=== PATIENT | female | born 1985 | race Caucasian/White ===

== ENCOUNTER → 2016-12-04 | Outpatient (CLI) | payer OTHER ==
--- NOTE | 2016-12-04 16:05 | US ---
EXAMINATION TYPE: US transvaginal DATE OF EXAM: 12/04/2016 COMPARISON: Previous study dated 05/27/2016. CLINICAL HISTORY: Brca 1 positive Z15.01. gerard mastectomy 2016, left breast cancer TECHNIQUE: Transvaginal (TV) Date of LMP: 11/21/2016 EXAM MEASUREMENTS: Uterus: 9.4 x 4.1 x 5.3 cm Endometrial Stripe: 0.5 cm Right Ovary: 2.2 x 1.1 x 1.7 cm Left Ovary: 1.7 x 1.3 x 1.7 cm 1. Uterus: Anteverted small nabothian cyst 0.3 cm 2. Endometrium: wnl 3. Right Ovary: small ov cysts 0.5 x 0.4 x 0.4, 0.7 x 0.5 x0.5, 0.6 x0.9 x 0.5 4. Left Ovary: echogenicity more echogenic than rt side no mass seen 5. Bilateral Adnexa: wnl 6. Posterior cul-de-sac: small amt fluid 1.2 cm IMPRESSION: 1. SMALL NABOTHIAN CYSTS IN THE POSTERIOR LIP OF THE CERVIX. 2. FOLLICULAR CHANGE WITHIN THE RIGHT OVARY.
== END | disposition home or self-care (01) ==
LOC: RADUSWWP 15:33
PROVIDERS: ATTEND Obstetrics & Gynecology
DX: N88.8 Other specified noninflammatory disorders of cervix uteri (principal); Z15.01 Genetic susceptibility to malignant neoplasm of breast
CPT/HCPCS: 76830

== ENCOUNTER → 2017-06-11 | Outpatient (CLI) | payer OTHER ==
--- NOTE | 2017-06-11 09:23 | US ---
EXAMINATION TYPE: US transvaginal DATE OF EXAM: 06/11/2017 COMPARISON: Ultrasound 12/04/2016 CLINICAL HISTORY: Z15.01 BRCA Positive. testing every 6 months due to +BRCA 1, bilateral mastectomy TECHNIQUE: TV Date of LMP: Late April EXAM MEASUREMENTS: Uterus: 9.7 x 5.4 x 5.3 cm Endometrial Stripe: 1.3 cm Right Ovary: 3.7 x 3.2 x 2.7 cm Left Ovary: 2.6 x 2.1 x 2.0 cm 1. Uterus: Anteverted wnl 2. Endometrium: wnl 3. Right Ovary: 2.0cm complex cyst with irregular kennedy and internal solid components, this warrants follow-up. 4. Left Ovary: multiple follicles seen at 1cm or under. Previous left ovarian hypoechoic appearance has resolved. 5. Bilateral Adnexa: wnl 6. Posterior cul-de-sac: wnl IMPRESSION: 1. Complex cyst right ovary. Recommend follow-up exam following the next normal menstrual period or 6 weeks from current exam.
== END | disposition home or self-care (01) ==
LOC: RADUSWWP 07:42
PROVIDERS: ATTEND Obstetrics & Gynecology
DX: N83.201 Unspecified ovarian cyst, right side (principal); Z15.01 Genetic susceptibility to malignant neoplasm of breast
CPT/HCPCS: 76830; 86304

== ENCOUNTER → 2017-07-21 | Outpatient (CLI) | payer OTHER ==
--- NOTE | 2017-07-21 08:27 | US ---
EXAMINATION TYPE: US pelvic complete DATE OF EXAM: 07/21/2017 COMPARISON: US CLINICAL HISTORY: N83.20 PREV OVARIAN CYST; HX of Breast CA, BRCA 1; ; followup right ovarian cys t TECHNIQUE: Transvaginal (TV) Date of LMP: 07/15/2017 EXAM MEASUREMENTS: Uterus: 9.0 x 5.3 x 3.6 cm Endometrial Stripe: 2.9mm upper right and 2.5mm upper left endometrium Right Ovary: 3.9 x 1.8 x 2.8 cm Left Ovary: 2.6 x 2.1 x 2.2 cm 1. Uterus: Anteverted; small Nabothian cysts in Cervix with largest = 0.3 x 0.3 x 0.2cm 2. Endometrium: thickness is wnl for Day 7LMP with bicornuate appearance to upper endometrium 3. Right Ovary: multifollicular with largest = 1.2 x 1.3 x 0.8cm 4. Left Ovary: multiple small follicles Spectral, color and waveform doppler imaging shows good arterial and venous flow within the ovaries ; there is no evidence for ovarian torsion. 5. Bilateral Adnexa: wnl 6. Posterior cul-de-sac: wnl IMPRESSION: 1. Bicornuate uterus. 2. Multiple follicles as noted
== END | disposition home or self-care (01) ==
LOC: RADUSWWP 07:36
PROVIDERS: ATTEND Obstetrics & Gynecology
DX: Q51.3 Bicornate uterus (principal)
CPT/HCPCS: 76830

== ENCOUNTER → 2017-12-18 | Outpatient (CLI) | payer OTHER ==
--- NOTE | 2017-12-18 08:06 | US ---
EXAMINATION TYPE: US transvaginal DATE OF EXAM: 12/18/2017 COMPARISON: Prior ultrasound 12/18/2017 CLINICAL HISTORY: Z15.01 BRCA I POSITIVE. 6 month follow up, no new compliants TECHNIQUE: Transvaginal (TV). Transvaginal sonographic images of the pelvis were acquired. Date of LMP: 2 wks ago EXAM MEASUREMENTS: Uterus: 8.1 x 4.3 x 5.3 cm Endometrial Stripe: 1.0 cm Right Ovary: 3.6 x 2.2 x 3.2 cm Left Ovary: 3.7 x 2.7 x 3.0 cm 1. Uterus: Anteverted heterogeneous around the cervical aspect 2. Endometrium: wnl 3. Right Ovary: wnl, multiple follicles are present 4. Left Ovary: seen with a thick walled cyst measuring 2.2cm, multiple follicles 5. Bilateral Adnexa: wnl 6. Posterior cul-de-sac: no free fluid seen IMPRESSION: At the level of the cervix there are multiple cystic spaces present which is an interval change in appearance compared to prior exam, findings felt most likely to represent nabothian cysts.
== END | disposition home or self-care (01) ==
LOC: RADUSWWP 07:31
PROVIDERS: ATTEND Obstetrics & Gynecology
DX: N88.8 Other specified noninflammatory disorders of cervix uteri (principal); Z15.01 Genetic susceptibility to malignant neoplasm of breast
CPT/HCPCS: 76830

== ENCOUNTER → 2018-06-25 | Outpatient (CLI) | payer OTHER ==
--- NOTE | 2018-06-25 08:22 | US ---
EXAMINATION TYPE: US transvaginal DATE OF EXAM: 06/25/2018 COMPARISON: US 12/18/2017 CLINICAL HISTORY: Z15.01 BRCA-positive. TECHNIQUE: . Transvaginal sonographic images of the pelvis were acquired. Transvaginal sonographic images were medically necessary to better assess the following anatomy: Ovaries Date of LMP: 06/03/2018 EXAM MEASUREMENTS: Uterus: 9.2 x 4.9 x 5.4 cm Endometrial Stripe: 0.9 cm Right Ovary: 3.8 x 2.4 x 1.8 cm Left Ovary: 2.9 x 2.6 x 2.6 cm 1. Uterus: Anteverted tiny nabothian cysts appear smaller than on the prior. 2. Endometrium: wnl 3. Right Ovary: Multiple follicles visualized 4. Left Ovary: Dominant follicle visualized measuring 2.2 x 1.8 x 2.0 cm 5. Bilateral Adnexa: wnl 6. Posterior cul-de-sac: wnl IMPRESSION: Nabothian cyst seen on the prior exam appears smaller. Stable dominant left ovarian folli rodolfo in comparison to the exam of 12/18/2017.
== END ==
LOC: RADUSWWP 07:34
PROVIDERS: ATTEND Obstetrics & Gynecology
DX: Z09 Encounter for follow-up examination after completed treatment for conditions other than malignant neoplasm (principal); N88.8 Other specified noninflammatory disorders of cervix uteri; Z15.01 Genetic susceptibility to malignant neoplasm of breast
CPT/HCPCS: 36415; 76830; 86304

== ENCOUNTER → 2018-09-09 | Outpatient (CLI) | payer OTHER ==
[2018-09-09 16:08] LABS: HCT 36.4 % (34.0-46.0); HGB 12.2 gm/dL (11.4-16.0); MCH 28.3 pg (25.0-35.0); MCHC 33.4 g/dL (31.0-37.0); MCV 84.7 fL (80.0-100.0); Mean Platelet Volume 6.4; Platelet Count 259 k/uL (150-450); RBC 4.29 m/uL (3.80-5.40); RDW 13.5 % (11.5-15.5); WBC 8.8 k/uL (3.8-10.6)
== END ==
LOC: LABWHC1 15:44
PROVIDERS: ATTEND Obstetrics & Gynecology
DX: Z34.81 Encounter for supervision of other normal pregnancy, first trimester (principal); Z3A.00 Weeks of gestation of pregnancy not specified
CPT/HCPCS: 36415; 82565; 82947; 85027; 86762; 86780; 86850; 86900; 86901; 87340

== ENCOUNTER → 2018-09-24 | Outpatient (CLI) | payer OTHER | LOC: LABWHC1 09:24 | PROVIDERS: ATTEND Obstetrics & Gynecology | DX: Z53.9 Procedure and treatment not carried out, unspecified reason (principal) ==

== ENCOUNTER → 2018-11-01 | Outpatient (CLI) | payer OTHER ==
[2018-11-02 10:40] LABS: Alpha Fetoprotein (M.O.M) 0.98; B-HCG (M.O.M.) 2.98; Gestational Age (days) 6; Inhibin A (M.O.M.) 1.24; Maternal Age at EDD (Yrs) 35; Smoker No; Unconjugated Estriol (M.O.M.) 1.63
== END | disposition home or self-care (01) ==
LOC: LABWHC1 08:27
PROVIDERS: ATTEND Obstetrics & Gynecology
DX: Z34.82 Encounter for supervision of other normal pregnancy, second trimester (principal)
CPT/HCPCS: 36415; 82105; 82677; 84702; 86336

== ENCOUNTER → 2018-12-21 | Outpatient (CLI) | payer OTHER ==
[2018-12-21 09:15] LABS: HCT 33.1 % (34.0-46.0); HGB 11.1 gm/dL (11.4-16.0); MCH 30.3 pg (25.0-35.0); MCHC 33.7 g/dL (31.0-37.0); MCV 90.1 fL (80.0-100.0); Mean Platelet Volume 7.4; Platelet Count 218 k/uL (150-450); RBC 3.67 m/uL (3.80-5.40); RDW 15.6 % (11.5-15.5); WBC 9.7 k/uL (3.8-10.6)
== END | disposition home or self-care (01) ==
LOC: LABWHC1 07:38
PROVIDERS: ATTEND Obstetrics & Gynecology
DX: Z34.82 Encounter for supervision of other normal pregnancy, second trimester (principal); Z3A.00 Weeks of gestation of pregnancy not specified
CPT/HCPCS: 36415; 82950; 85027

== ENCOUNTER 2019-03-29 05:50 | Inpatient (IN) | payer OTHER ==
[2019-03-29] MEDS ORDERED: METHYLERGONOVINE 0.2 MG/ML 1 ML AMP IM PRN (06:03)
[2019-03-29] MEDS ORDERED: LIDOCAINE 0.5% (PF) 5 MG/ML (50 ML SDV) SQ PRN (06:03)
[2019-03-29] MEDS ORDERED: OXYTOCIN 30 UNITS/500 ML NS 30 UNIT in SALINE 1 500ML.BAG IV SCH (06:03)
[2019-03-29] MEDS ORDERED: CARBOPROST TROMETHAMINE 250 MCG/ML 1 ML AMP IM PRN (06:03)
[2019-03-29] MEDS ORDERED: OXYTOCIN 10 UNIT/ML 1 ML VIAL IM PRN (06:03)
[2019-03-29] MEDS ORDERED: TERBUTALINE 1 MG/ML VIAL SQ PRN (06:03)
[2019-03-29] MEDS: LACTATED RINGERS 1,000 ML IV SCH ×5 (06:10→20:00)
--- NOTE | 2019-03-29 06:12 | P.HPOB ---
History of Present Illness H&P Date: 03/29/19 Chief Complaint: Requested induction of labor This patient is a pleasant 33-year-old 3 para 2 female estimated date of confinement 04/05/2019 estimated gestational age 39 weeks who presents to labor and delivery for requested induction of labor. Patient's care is complicated by advanced for maternal age. She declined referral to maternal- medicine but she did get genetic testing done with Materni T21 which was normal (46XX). She has had normal growth ultrasounds and anatomy ultrasounds and normal testing. Patient is now requesting delivery due to maternal discomfort. Patient does have a history of large for gestational age infants without delivery implications. Estimated weight at this time is 8 and half to 9 pounds. Patient's past medical history is significant for a previous diagnosis of breast cancer and she status post bilateral mastectomy and she is a carrier of BRCA1 gene. Review of Systems Genitourinary: Reports Menstruation: Reports amenorrhea Past Medical History Past Medical History: Cancer Additional Past Medical History / Comment(s): Breast cancer status post gerard ateral mastectomy. BRCA1 gene carrier History of Any Multi-Drug Resistant Organisms: None Reported Past Surgical History: Appendectomy, Breast Surgery Additional Past Surgical History / Comment(s): Bilateral mastectomy with bilateral reconstructive surgery Past Anesthesia/Blood Transfusion Reactions: No Reported Reaction Past Psychological History: No Psychological Hx Reported Smoking Status: Never smoker Past Alcohol Use History: None Reported Past Drug Use History: None Reported Medications and Allergies Home Medications Medication Instructions Recorded Confirmed Type Quartette 1 tab PO DAILY 12/08/13 12/12/13 History Allergies Allergy/AdvReac Type Severity Reaction Status Date / Time No Known Allergies Allergy Verified 12/08/13 16:09 Exam - OBG Physical Exam Abdomen: bowel sounds normal, no diffuse tenderness, no bruit present, no guarding noted, no hepatomegaly, no splenomegaly, no mass Vulva: both: normal Vagina: normal moisture, no discharge Cervix: no lesion (Cervix in the office was 1-2 cm dilated.), no discharge Uterus: enlarged (Fundal height in the office is 39 cm) Results blood work shows she is A+, rubella immune, RPR nonreactive, hepatitis B negative, quad screen was negative, Materni T21 was 46 X,X, group B strep was negative, growth ultrasounds have been normal. Ultrasound on March 03 was 6 lbs. 12 oz. which is 87th percentile. Assessment and Plan Assessment: This is a pleasant 3 para 2 female 39 weeks gestation admitted to labor and delivery for requested induction of labor due to maternal discomfort. Patient is a history of large for gestational age infants 2 without delivery implications estimated weight on this baby is 8-9 pounds. Plan is induction of labor and anticipate vaginal delivery. (1) 39 weeks gestation of Current Visit: Yes Status: Acute Code(s): Z3A.39 - 39 WEEKS GESTATION OF SNOMED Code(s): 79538421 (2) Elective induction of labor planned Current Visit: Yes Status: Acute Code(s): QBW3351 - SNOMED Code(s): 872125355
[2019-03-29 06:21] LABS: Basophils % (A) 1 %; Eosinophils # (A) 0.1 k/uL (0-0.7); Eosinophils % (A) 2 %; HCT 35.4 % (34.0-46.0); HGB 11.4 gm/dL (11.4-16.0); Lymphocytes # (A) 1.7 k/uL (1.0-4.8); Lymphocytes % (A) 23 %; MCH 29.4 pg (25.0-35.0); MCHC 32.2 g/dL (31.0-37.0); MCV 91.3 fL (80.0-100.0); Mean Platelet Volume 6.9; Monocytes # (A) 0.3 k/uL (0-1.0); Monocytes % (A) 4 %; Neutrophils # (A) 5.2 k/uL (1.3-7.7); Neutrophils % (A) 69 %; Platelet Count 215 k/uL (150-450); RBC 3.88 m/uL (3.80-5.40); RDW 15.1 % (11.5-15.5); WBC 7.5 k/uL (3.8-10.6)
[2019-03-29 06:24] VITALS: RESP 16; BMI 31.1
[2019-03-29] MEDS ORDERED: fentaNYL (PF) 50 MCG/ML 5 ML AMP ONE (14:44)
[2019-03-29] MEDS ORDERED: ROPIVACAINE 5MG/ML 20ML VIAL ONE (14:44)
[2019-03-29] MEDS ORDERED: SODIUM CHLORIDE 0.9% 100 ML BAG ONE (14:44)
[2019-03-29] MEDS ORDERED: AMPICILLIN 2,000 MG in SODIUM CHLORIDE 0.9% 100 ML IVPB STA (19:23)
[2019-03-29] MEDS ORDERED: LIDOCAINE 0.5% (PF) 5 MG/ML (50 ML SDV) ONE (21:50)
[2019-03-29] MEDS ORDERED: WITCH HAZEL 1 EACH MED..PAD TOPICAL ONE (21:50)
[2019-03-29] MEDS ORDERED: BISACODYL 10 MG SUPP RECTAL PRN (22:10)
[2019-03-29] MEDS ORDERED: IBUPROFEN 600 MG TAB PO PRN (22:10)
[2019-03-29] MEDS ORDERED: ACETAMINOPHEN TAB 325 MG TAB PO PRN (22:10)
[2019-03-29] MEDS ORDERED: LANOLIN CREAM 5 GM TUBE TOPICAL PRN (22:10)
[2019-03-29] MEDS ORDERED: SIMETHICONE 80 MG CHEWABLE PO PRN (22:10)
[2019-03-29] MEDS ORDERED: WITCH HAZEL 1 EACH MED..PAD TOPICAL PRN (22:10)
[2019-03-29] MEDS ORDERED: ZOLPIDEM 5 MG TAB PO PRN (22:10)
[2019-03-29] MEDS ORDERED: BENZOCAINE/MENTHOL SPRAY 1 GM/SPRAY AEROSOL TOPICAL PRN (22:10)
[2019-03-29] MEDS ORDERED: HYDROCORTISONE 2.5% RECTAL CREAM 30 GM TUBE RECTAL PRN (22:10)
[2019-03-29] MEDS ORDERED: diphenhydrAMINE 25 MG CAP PO PRN (22:10)
[2019-03-29] MEDS ORDERED: diphenhydrAMINE 50 MG/ML 1 ML VIAL IVP PRN (22:10)
[2019-03-29] MEDS ORDERED: OXYTOCIN 20 UNITS/1000 ML NS 1,000 ML IV SCH (22:15)
--- NOTE | 2019-03-29 22:16 | P.PROBDLV ---
Vaginal Delivery Note - . Vaginal Delivery Note: Normal vaginal delivery viable female Apgars 8 and 9 delivery time is 2147 hrs. Please see dictated H&P for intimate details of this patient's admission. Brief summary this is a pleasant 33-year-old 3 para 2 female 39 weeks gestation admitted to labor and delivery for induction of labor. On admission patient is to 2 cm dilated has artificial rupture membranes for clear fluid. Patient's labor progresses throughout the day and about 4 cm she gets an epidural for pain control. Patient does stall out a bit at 7 cm but with position changes then does go to complete. Patient pushes for proximally 5 minutes and pushes the head to the perineum. The posterior perineum is supported and we have controlled delivery of infant's head and the straight occiput anterior presentation. There is a nuchal cord 1 which is reduced. The mouth and nares are bulb suctioned for clear fluid. With gentle downward traction we have delivery the anterior and posterior shoulder and rest this infant's body. The vigorous viable female Apgars are 8 and 9 delivery time is 2147 hrs. Infant has spontaneous respirations and good cry is laid on the mother's abdomen. After the umbilical cord is done pulsating is doubly clamped and cut. It appears to be trivascular. Placenta is then spontaneously delivered intact. Estimated blood loss is 150 mL. Inspection of perineum shows a second-degree laceration was repaired with 3-0 Vicryl usual fashion. Good reapproximation is noted. All counts are correct 3. There are no complications. and mother stable delivery room.
[2019-03-30] MEDS: SENNOSIDES-DOCUSATE SODIUM 1 EACH TAB PO SCH ×2 (09:23→21:08)
--- NOTE | 2019-03-30 12:19 | P.PNOBGVD ---
Subjective - Subjective Patient reports: Reports appetite normal, Reports voiding normally, Reports pain well controlled, Reports ambulating normally : doing well Objective - Latest Vital Signs Latest vital signs: Vital Signs Temp Pulse Resp BP 03/30/19 08:00 97.6 F 95 16 136/75 03/29/19 22:45 115 H 16 133/81 03/29/19 22:30 99.0 F 109 H 16 121/69 03/29/19 22:15 99 16 129/77 03/29/19 22:00 99.0 F 113 H 16 126/73 Intake and Output 03/29/19 03/30/19 03/30/19 22:59 06:59 14:59 Output Total 200 Balance -200 Output: Urine 200 - Exam Lungs: bilateral: normal Chest: Normal S1, Normal S2 Extremities: Present: normal Abdomen: Present: normal appearance, soft Uterus: Present: normal, firm Assessment and Plan Assessment: day #1. Patient is resting without complaints and wishes to go home. Vital signs are stable she is afebrile. Uterus is firm nontender and she is having normal lochia. My impression this is a normal course. Plan is to continue routine care discharge home later tonight. (1) 39 weeks gestation of Current Visit: Yes Status: Acute Code(s): Z3A.39 - 39 WEEKS GESTATION OF SNOMED Code(s): 20662193 (2) Elective induction of labor planned Current Visit: Yes Status: Acute Code(s): [id number] - SNOMED Code(s): 845403394
--- NOTE | 2019-03-30 12:22 | P.DS ---
Providers Date of admission: 03/29/19 05:50 Expected date of discharge: 03/30/19 Attending physician: Luís Vasquez Primary care physician: Dane Stark - Discharge Diagnosis(es) (1) 39 weeks gestation of Current Visit: Yes Status: Acute (2) Elective induction of labor planned Current Visit: Yes Status: Acute Hospital Course: Please see dictated H&P for intimate details of this patient's admission. Brief summary this pleasant 33-year-old 3 para 2 female 39 weeks gestation who is admitted to labor and delivery for requested induction of labor. Patient is admitted has uncomplicated induction of labor goes on to have a vaginal delivery viable female infant. Please see dictated delivery note. day 1 patient's felt be stable for discharge home follow up with me in 6 weeks. She call she is any fever, chills, excessive vaginal bleeding, and/or abdominal pain. Procedures: Induction of labor and normal vaginal delivery Patient Condition at Discharge: Good Plan - Discharge Summary New Discharge Prescriptions: New Ibuprofen [Motrin] 600 mg PO Q6HR PRN #40 tab PRN Reason: Mild Pain Or Fever >= 100.5 No Action Pedi Multivit No.25/Folic Acid [Flintstones Multivit Chew Tab] 1 tab PO ONCE Discharge Medication List Pedi Multivit No.25/Folic Acid [Flintstones Multivit Chew Tab] 1 tab PO ONCE 03/29/19 [History] Ibuprofen [Motrin] 600 mg PO Q6HR PRN #40 tab 03/30/19 [Rx] Follow up Appointment(s)/Referral(s): Luís Vasquez MD [STAFF PHYSICIAN] - 05/09/19 11:15 am Patient Instructions/Handouts: Vaginal Delivery (DC) Activity/Diet/Wound Care/Special Instructions: No intercourse or anything per vagina for 6 weeks. Please call if any fever, chills, excessive vaginal bleeding, and/or abdominal pain. Discharge Disposition: HOME SELF-CARE
[2019-03-30] MEDS ORDERED: IBUPROFEN ORAL SUSP 100 MG/5 ML CUP PO PRN (12:47)
[2019-03-30] MEDS: IBUPROFEN ORAL SUSP 2,400 MG/120 ML BOTTLE PO PRN (15:20)
[2019-03-31] MEDS: IBUPROFEN ORAL SUSP 2,400 MG/120 ML BOTTLE PO PRN (02:56)
--- NOTE | 2019-03-31 06:09 | P.PNOBGVD ---
Subjective - Subjective Patient reports: Reports appetite normal, Reports voiding normally, Reports pain well controlled, Reports ambulating normally [place]: doing well, other (Jaundice) Objective - Latest Vital Signs Latest vital signs: Vital Signs Temp Pulse Resp BP 03/31/19 06:00 16 121/79 03/31/19 00:00 98.1 F 97 16 144/93 03/30/19 16:00 98.3 F 97 16 126/74 03/30/19 08:00 97.6 F 95 16 136/75 - Exam Lungs: bilateral: normal Chest: Normal S1, Normal S2 Extremities: Present: normal Abdomen: Present: normal appearance, soft Uterus: Present: normal, firm Assessment and Plan Assessment: Lelia did well overnight. She initially wanted to go home last evening however her baby developed some jaundice and therefore needed some phototherapy. Plan today is to continue routine care discharge home later today. (1) 39 weeks gestation of Current Visit: Yes Status: Acute Code(s): Z3A.39 - 39 WEEKS GESTATION OF SNOMED Code(s): 68930965 (2) Elective induction of labor planned Current Visit: Yes Status: Acute Code(s): UNX1351 - SNOMED Code(s): 187424970
[2019-03-31 15:50] VITALS: BP 130/75; TEMP 98.2
[2019-03-31 16:18] VITALS: PULSE 82
[2019-03-31] MEDS: SENNOSIDES-DOCUSATE SODIUM 1 EACH TAB PO SCH (18:44)
== END 2019-03-31 18:45 | disposition home or self-care (01) | DRG 807 ==
LOC: 4FBP 05:50
PROVIDERS: ADMIT Obstetrics & Gynecology; ATTEND Obstetrics & Gynecology
PROC: 10907ZC Drainage of Amniotic Fluid, Therapeutic from Products of Conception, Via Natural or Artificial Opening (ICD-10-PCS; principal; 2019-03-29)
PROC: 10E0XZZ Delivery of Products of Conception, External Approach (ICD-10-PCS; 2019-03-29)
PROC: 0KQM0ZZ Repair Perineum Muscle, Open Approach (ICD-10-PCS; 2019-03-29)
DX: O69.81X0 Labor and delivery complicated by cord around neck, without compression, not applicable or unspecified (principal); Z37.0 Single live birth; O70.1 Second degree perineal laceration during delivery; Z3A.39 39 weeks gestation of pregnancy; Z85.3 Personal history of malignant neoplasm of breast; Z90.13 Acquired absence of bilateral breasts and nipples; Z15.01 Genetic susceptibility to malignant neoplasm of breast
CPT/HCPCS: 85025; 86850; 86900; 86901

== ENCOUNTER → 2020-01-09 | Outpatient (CLI) | payer OTHER ==
--- NOTE | 2020-01-09 08:50 | US ---
EXAMINATION TYPE: US transvaginal DATE OF EXAM: 01/09/2020 COMPARISON: 06/25/18 CLINICAL HISTORY: Z14.8 Genetic carrier of other disease. History of breast CA, Genetic carrier, 9 mo nths post TECHNIQUE: Transvaginal (TV). Transabdominal sonographic images of the pelvis were acquired. Trans vaginal sonographic images were medically necessary to better assess the following anatomy: Date of LMP: 01/05/19 EXAM MEASUREMENTS: Uterus: 10.3 x 5.6 x 5.5 cm Endometrial Stripe: 0.6 cm Right Ovary: 2.7 x 2.6 x 2.1 cm Left Ovary: 2.6 x 2.0 x 1.7 cm 1. Uterus: Anteverted bulky, heterogeneous texture 2. Endometrium: wnl 3. Right Ovary: with follicles 4. Left Ovary: with follicles, largest 1cm Spectral, color and waveform doppler imaging shows good arterial and venous flow within the ovaries ; there is no evidence for ovarian torsion. 5. Bilateral Adnexa: wnl 6. Posterior cul-de-sac: wnl IMPRESSION: 1. Normal pelvic ultrasound.
== END | disposition home or self-care (01) ==
LOC: RADUSWWP 06:58
PROVIDERS: ATTEND Internal Medicine Hematology & Oncology
DX: Z14.8 Genetic carrier of other disease (principal)
CPT/HCPCS: 76830

== ENCOUNTER → 2020-03-28 | Outpatient (CLI) | payer OTHER ==
[2020-03-28 08:58] LABS: Basophils # (A) 0.1 k/uL (0-0.2); Basophils % (A) 1 %; Eosinophils # (A) 0.1 k/uL (0-0.7); Eosinophils % (A) 1 %; HCT 41.7 % (34.0-46.0); HGB 13.8 gm/dL (11.4-16.0); Lymphocytes # (A) 1.7 k/uL (1.0-4.8); Lymphocytes % (A) 28 %; MCH 29.2 pg (25.0-35.0); MCV 88.3 fL (80.0-100.0); Mean Platelet Volume 6.8; Monocytes # (A) 0.2 k/uL (0-1.0); Monocytes % (A) 4 %; Neutrophils # (A) 4.1 k/uL (1.3-7.7); Neutrophils % (A) 66 %; Platelet Count 257 k/uL (150-450); RBC 4.72 m/uL (3.80-5.40); WBC 6.2 k/uL (3.8-10.6)
[2020-03-28 09:08] LABS: African American GFR (CKD) >90 (>60 ml/min/1.73 sqM); Anion Gap 7 mmol/L; Blood Urea Nitrogen 10 mg/dL (7-17); Calcium 8.7 mg/dL (8.4-10.2); Carbon Dioxide 24 mmol/L (22-30); Chloride 108 mmol/L (98-107); Glucose 102 mg/dL (74-99); Non-African American GFR(CKD) >90 (>60 ml/min/1.73 sqM); Potassium 4.5 mmol/L (3.5-5.1); Sodium 139 mmol/L (137-145)
== END | disposition home or self-care (01) ==
LOC: LABPAT 07:49
PROVIDERS: ATTEND Obstetrics & Gynecology
DX: Z01.818 Encounter for other preprocedural examination (principal)
CPT/HCPCS: 36415; 80048; 85025

== ENCOUNTER 2020-04-05 05:55 | Observation (INO) | payer OTHER ==
[2020-04-02 14:05] VITALS: BMI 27.3
--- NOTE | 2020-04-04 16:35 | P.HPOB ---
History of Present Illness H&P Date: 04/04/20 Chief Complaint: BRCA1 positive Lelia is a 34-year-old female with BRCA1 positive breast cancer. She is scheduled for a robotic-assisted laparoscopic hysterectomy with bilateral salpingo-oophorectomy. Risks/benefits/alternatives to this procedure were reviewed with patient in detail and all questions were answered for her prior to proceeding to the operative room. Risks did include but were not limited to bleeding and infection, damage to bladder, damage to bowel, vascular injuries, nerve injuries, ureteral damage and possible need further surgery. A CA-125 was ordered out of precaution and was normal. Otherwise she is feeling well at this time. Past Medical History Past Medical History: Cancer Additional Past Medical History / Comment(s): Hx breast cancer [id number]. BRCA1 gene carrier. History of Any Multi-Drug Resistant Organisms: None Reported Past Surgical History: Appendectomy, Breast Surgery Additional Past Surgical History / Comment(s): Bilateral mastectomy with bilateral reconstructive surgery. Past Anesthesia/Blood Transfusion Reactions: No Reported Reaction Past Psychological History: No Psychological Hx Reported Smoking Status: Never smoker Past Alcohol Use History: Rare Past Drug Use History: None Reported - Past Family History Mother Family Medical History: No Reported History Sister(s) Family Medical History: Cancer Additional Family Medical History / Comment(s): Breast cancer. Medications and Allergies Home Medications Medication Instructions Recorded Confirmed Type No Known Home Medications 04/02/20 04/02/20 History Allergies Allergy/AdvReac Type Severity Reaction Status Date / Time No Known Allergies Allergy Verified 04/02/20 14:07 Exam Osteopathic Statement: *. No significant issues noted on an osteopathic struc tural exam other than those noted in the History and Physical/Consult. - OBG Physical Exam Breast: both: normal (no masses) Abdomen: bowel sounds normal, no diffuse tenderness, no bruit present, no guarding noted, no hepatomegaly, no splenomegaly, no mass Vulva: both: normal Vagina: normal moisture, no discharge Cervix: no lesion, no discharge Uterus: normal size, normal contour Adnexa: both: normal Anus/Rectum: normal perianal skin, no rectal mass, no hemorrhoids, heme negative
[~2020-04-05 05:55] MED LIST: DEXAMETHASONE SOD PHOSPHATE 10 MG/ML 1 ML VIAL IV ONE; ONDANSETRON 4 MG/2 ML VIAL IVP ONE
[2020-04-05] MEDS: LACTATED RINGERS 1,000 ML IV SCH ×2 (06:25→14:37)
[2020-04-05] MEDS ORDERED: LIDOCAINE 1% (10MG/ML) FOR IV START INTRADERMA ONE (06:25)
[2020-04-05] MEDS ORDERED: SCOPOLAMINE 1.5MG/72HR PATCH TRANSDERM ONE (06:45)
[2020-04-05] MEDS ORDERED: MIDAZOLAM 2 MG/2 ML VIAL ONE (07:31)
[2020-04-05] MEDS ORDERED: PROPOFOL 10 MG/ML 20 ML VIAL IV ONE (07:31)
[2020-04-05] MEDS ORDERED: NEOSTIGMINE 1 MG/ML 10 ML VIAL ONE (07:31)
[2020-04-05] MEDS ORDERED: SUCCINYLCHOLINE CHLORIDE 100 MG/5 ML SYR IV ONE (07:31)
[2020-04-05] MEDS ORDERED: LIDOCAINE 1% INJ 10MG/ML (20 ML MDV) ONE (07:31)
[2020-04-05] MEDS ORDERED: HYDROmorphone (PF) 1 MG/ML ONE (07:31)
[2020-04-05] MEDS ORDERED: fentaNYL (PF) 50 MCG/ML 2 ML AMP ONE (07:31)
[2020-04-05] MEDS ORDERED: ROCURONIUM 10 MG/ML (10 ML VIAL) IV ONE (07:31)
[2020-04-05] MEDS ORDERED: GLYCOPYRROLATE 0.2 MG/ML 2 ML VIAL ONE (07:31)
[2020-04-05] MEDS ORDERED: BUPIVACAINE (PF) 0.25% 30 ML VIAL SQ ONE ×2 (08:14→08:57)
[2020-04-05] MEDS ORDERED: LACTATED RINGERS 1,000 ML IV ONE (08:30)
[2020-04-05] MEDS ORDERED: SIMETHICONE 80 MG CHEWABLE PO PRN (08:57)
[2020-04-05] MEDS ORDERED: diphenhydrAMINE 50 MG/ML 1 ML VIAL IVP PRN (08:57)
[2020-04-05] MEDS ORDERED: ONDANSETRON 4 MG/2 ML VIAL IVP PRN (08:57)
[2020-04-05] MEDS ORDERED: HYDROcodone/APAP 5-325MG 1 EACH TAB PO PRN ×2 (08:58)
--- NOTE | 2020-04-05 09:05 | P.OP ---
Date of Procedure: 04/05/20 Preoperative Diagnosis: BRCA1 positive Postoperative Diagnosis: Same with stage I endometriosis and adhesion Procedure(s) Performed: Robotic-assisted laparoscopic hysterectomy with bilateral salpingo-oophorectomy and lysis of adhesion Anesthesia: VIBHA Surgeon: Amadeo Cintron Security Investigator #1: Paloma Recio Estimated Blood Loss (ml): 25 IV fluids (ml): 700 Urine output (ml): 500 Pathology: other (Uterus, cervix, fallopian tubes, ovaries) Condition: stable Disposition: floor Operative Findings: Stage I endometriosis noted with one adhesion was lysed Description of Procedure: Patient was taken to the operating suite where a general anesthetic found be adequate. She was prepped and draped in the normal sterile fashion and placed in dorsal lithotomy position. Initially a weighted speculum was inserted in the vagina and the anterior lip of cervix identified grasped with a sickle tooth tenaculum and the cervix was sounded to 9 cm. Cup sizes measured to 3 Cm and a Misty manipulator was then inserted without difficulty with stay sutures placed at 3 and 9. Fully cath was then placed and the other incidents were removed. Gloves were then changed and attention was turned to the abdominal portion procedure where 2 mL of quarter percent Marcaine was injected 2 cm above the umbilicus. Through this injected anesthetic a 5 mm skin incision was made and through this incision, under direct visualization with an optical trocar and sleeve, the camera was inserted. Once peritoneal placement was assured gas was allowed to fully insufflate the abdomen and patient was then placed in steep Trendelenburg. Additional a 25. 2 lateral ports then placed 10 cm lateral to the umbilicus and through these incisions the 8 mm ports and sleeves were inserted. Once this was completed fourth port and sleeve was then inserted between the left lateral and medial ports were 1 cm incision for an periodontal assistant port. Camera port was exchanged for robotic port and the robot was brought in and docked. Once fully docked a scissor was placed in the 2 arm and a [place] grasper in 3 arm. At this point I did break scrub and go to the console. Observations Sue noted. There was a adhesion between the lateral sidewall on the right and the bowel which was lysed without difficulty. There were scattered endometriosis implants including one that was actually on the bowel was left alone. Once this was completed uterus was elevated tipped left side and the left infundibular pelvic lid was identified cauterized and transected. Moving through the mesosalpinx tissue to the round ligament tissues again cauterized and transected round ligament was then cauterized transected and anterior posterior leafs of the broad ligament were developed. Tissue was was then skeletonized to get access to the vascularity which was then cauterized. At this point the uterus was retroverted and the bladder flap was undermined and incised. This opening was then Extended across face uterus with undermining and incision and then the bladder was bluntly dissected out of the operative field. Once this was completed uterus was again elevated and tipped to the left and then the right side was developed in a similar fashion. Once this was completed balloon was blown up in the manipulator and an anterior colpotomy was made. Once colpotomy was created we did tipped uterus up and to the right again and following the cup in a counterclockwise fashion cheating head when necessary to maintain excellent hemostasis the cervix was from the vagina. Once 3 and 60 was developed uterus was brought into the vagina to maintain pneumoperitoneum. At this point pedicles were evaluated and once hemostasis was felt to be obtained, instruments were exchanged for a make suture cut and a cardia grasper. To OB lock suture was then brought into the abdomen and the vaginal cuff was closed in a running fashion with to OB lock suture. Once this was completed with excellent hemostasis noted incidents removed and gas allowed to expel from the abdomen. 5 deep breaths were provided during this process. I did re-scrub in and do a cystoscopy and both ureteral jets showed excellent flow. Dr. Recio close incision subcuticular E the remaining 8 mL of quarter percent Marcaine was injected around these incisions. Sponge, lap, needle counts were all correct 2. Patient was then taken to the recovery room in stable and satisfactory condition. Should be noted there was 2 or 3 scattered endometrial implants but as they did not seem to be bothering her and they were in areas that were close to ureters and bowel they were not cauterized.
[2020-04-05] MEDS: HYDROmorphone 0.5 MG/0.5 ML SYRINGE IVP PRN ×3 (09:34→09:49)
[2020-04-05] MEDS ORDERED: ONDANSETRON 4 MG/2 ML VIAL IVP ONE (09:40)
[2020-04-05] MEDS: KETOROLAC 15 MG/ML 1 ML VIAL IVP PRN ×2 (17:21→22:57)
[2020-04-05] MEDS: SENNOSIDES-DOCUSATE SODIUM 1 EACH TAB PO SCH (21:18)
[2020-04-06] MEDS: KETOROLAC 15 MG/ML 1 ML VIAL IVP PRN (04:47)
[2020-04-06 08:05] VITALS: BP 118/74; PULSE 81; RESP 16; TEMP 98.2
--- NOTE | 2020-04-06 08:13 | P.DS ---
Providers Date of admission: 04/05/20 23:09 Expected date of discharge: 04/06/20 Attending physician: Amadeo Cintron Primary care physician: Dane Stark [facility] Course: Corneas doing very well post op day 1. She is ambulating, voiding and t olerating her diet. She voices no complaints and is requesting discharge home today. Prescription for Motrin and Christiana reported to the pharmacy. She is aware to have no heavy lifting, limit stairs and driving, and pelvic rest. Should she have any high temperatures, heavy bleeding, or severe pain she'll notify our office. She'll follow up me in 1 week. All the questions are answered for her and she is stable for discharge this time. On physical exam vital signs are stable and afebrile. Heart regular, lungs clear, extremities without pain. Abdomen soft incisions are clean dry and intact and she does have bowel sounds. Assessment postop day 1. Plan discharged home follow up in 1 week. Patient Condition at Discharge: Good Plan - Discharge Summary Discharge Rx Participant: Yes New Discharge Prescriptions: New Ibuprofen [Motrin] 600 mg PO Q6HR PRN #30 tab PRN Reason: Pain HYDROcodone/APAP 5-325MG [Christiana 5-325] 1 tab PO Q4HR PRN #30 tab PRN Reason: Pain Discharge Medication List HYDROcodone/APAP 5-325MG [Christiana 5-325] 1 tab PO Q4HR PRN #30 tab 04/06/20 [Rx] Ibuprofen [Motrin] 600 mg PO Q6HR PRN #30 tab 04/06/20 [Rx] Follow up Appointment(s)/Referral(s): Amadeo Cintron DO [Doctor of Osteopathic Medicine] - 1 Week Patient Instructions/Handouts: *Surgery [facility] - Scopalamine Patch Instructions Activity/Diet/Wound Care/Special Instructions: No heavy lifting, limit stairs and driving, and pelvic rest. If any high temperatures, heavy bleeding, or severe pain call my office Discharge Disposition: HOME SELF-CARE
== END 2020-04-06 08:24 | disposition home or self-care (01) ==
LOC: OR 05:55 → 4FBP 08:58 → OR 23:23
PROVIDERS: ADMIT Obstetrics & Gynecology; ATTEND Obstetrics & Gynecology
DX: N80.9 Endometriosis, unspecified (principal); Z85.3 Personal history of malignant neoplasm of breast; Z80.3 Family history of malignant neoplasm of breast; Z90.13 Acquired absence of bilateral breasts and nipples
CPT/HCPCS: 58578; S2900; 81025; 86850; 86900; 86901; 88307

== ENCOUNTER 2023-02-20 18:01 | Observation (INO) | payer BC ==
[2023-02-20] MEDS ORDERED: HYDROmorphone 1 MG/ML 1 ML SYRINGE IVP STA (19:09)
--- NOTE | 2023-02-20 19:13 | ED ---
Abdominal Pain HPI - General Chief Complaint: Abdominal Pain Stated Complaint: back pain/kidney stones revisit Time Seen by Provider: 02/20/23 19:01 Source: patient Mode of arrival: wheelchair Limitations: no limitations - History of Present Illness Initial Comments: 37-year-old female presenting to the ED with a chief complaint of abdominal pain. Patient previously seen here and discharged at 12 PM today. Workup earlier showed a 5 mm stone in the distal third right ureter with moderate obstructive uropathy. Labs significant for an elevated white blood cell count 11.1, lactic acid 2.3, and urine significant for greater then 182 red blood cells, 32 white blood cells, rare bacteria, and large blood. Patient was discharged home with Toradol, [place], Flomax. Despite taking this states significant pain prompting presentation to the ED. Associated nausea, no vomiting. Denies chest pain or shortness of breath. No other complaints. - Related Data Previous Rx's Medication Instructions Recorded HYDROcodone/APAP 5-325MG [[place] 1 tab PO Q4HR PRN #30 tab 04/06/20 5-325] Ibuprofen [Motrin] 600 mg PO Q6HR PRN #30 tab 04/06/20 HYDROcodone/APAP 5-325MG [[place] 1 tab PO Q6HR PRN 3 Days #12 tab 02/20/23 5-325] Ketorolac [Toradol] 10 mg PO Q8HR #15 tab 02/20/23 Ondansetron Odt [Zofran Odt] 4 mg PO Q8HR PRN #10 tab 02/20/23 Tamsulosin [Flomax] 0.4 mg PO DAILY #7 cap 02/20/23 Allergies Allergy/AdvReac Type Severity Reaction Status Date / Time No Known Allergies Allergy Verified 02/20/23 18:24 Review of Systems ROS Statement: Those systems with pertinent positive or pertinent negative responses have been documented in the HPI. ROS Other: All systems not noted in ROS Statement are negative. Past Medical History Past Medical History: Cancer Additional Past Medical History / Comment(s): Breast cancer status post bilateral mastectomy. BRCA1 gene carrier, kidney stones History of Any Multi-Drug Resistant Organisms: None Reported Past Surgical History: Hysterectomy Additional Past Surgical History / Comment(s): Bilateral mastectomy with bilateral reconstructive surgery Past Anesthesia/Blood Transfusion Reactions: No Reported Reaction Past Psychological History: No Psychological Hx Reported Smoking Status: Never smoker Past Alcohol Use History: None Reported, Occasional Past Drug Use History: None Reported - Past Family History Mother Family Medical History: No Reported History Sister(s) Family Medical History: Cancer Additional Family Medical History / Comment(s): Breast cancer. General Exam Limitations: no limitations General appearance: alert, in distress ENT exam: Present: mucous membranes moist Respiratory exam: Present: normal lung sounds bilaterally Cardiovascular Exam: Present: regular rate, normal rhythm GI/Abdominal exam: Present: soft (Diffuse lower abdominal tenderness to palpation. No rebound guarding or rigidity. Right CVA tenderness to percussion.) Neurological exam: Present: alert, oriented X3 Skin exam: Present: warm, dry Course Vital Signs 02/20/23 18:22 Temperature 98.6 F Pulse Rate 94 Respiratory 20 Rate Blood Pressure 128/84 O2 Sat by Pulse 98 Oximetry Medical Decision Making - Medical Decision Making Was pt. sent in by a medical professional or institution (, [place], [facility], urgent care, hospital, or long-term...) When possible be specific @ -No Did you speak to anyone other than the patient for history (EMS, parent, family, police, friend...)? What history was obtained from this source @ -No Did you review nursing and triage notes (agree or disagree)? Why? @ -I reviewed and agree with nursing and triage notes Were old charts reviewed (outside hosp., previous admission, EMS record, old EKG, old radiological studies, urgent care reports/EKG's, long-term records)? Report findings @ -Prior to discharge today reviewed. Further details please see HPI. Differential Diagnosis (chest pain, altered mental status, abdominal pain women, abdominal pain men, vaginal bleeding, weakness, fever, dyspnea, syncope, headache, dizziness, GI bleed, back pain, seizure, CVA, palpatations, mental health, musculoskeletal)? @ -Differential Abdominal Pain Women: Appendicitis, Cholecystitis, diverticulosis, ischemic bowel, pancreatitis, hepatitis, UTI, gastroenteritis, AAA, incarcerated hernia, bowel obstruction, constipation, inflammatory bowel, hepatitis, peptic ulcer disease, splenic infarction, perforated viscus, vulvitis, ovarian torsion, PID, kidney stone, placenta abruption, this is not meant to be an all-inclusive list EKG interpreted by me (3pts min.). @ -None X-rays interpreted by me (1pt min.). @ -None done CT interpreted by me (1pt min.). @ -None done U/S interpreted by me (1pt. min.). @ -None done What testing was considered but not performed or refused? (CT, X-rays, U/S, labs)? Why? @ -None What meds were considered but not given or refused? Why? @ -None Did you discuss the management of the patient with other professionals (professionals i.e. DrJaz, PA, [employer], lab, RT, psych nurse, social media project manager, television announcer, teacher, mortgage loan officer, senior case manager)? Give summary @ -Discussed with Dr. Valdes, who accepted admission Was smoking cessation discussed for >3mins.? @ -No Was critical care preformed (if so, how long)? @ -No Were there social determinants of health that impacted care today? How? (Homelessness, low income, unemployed, alcoholism, drug addiction, transportation, low edu. Level, literacy, decrease access to med. care, long-term, rehab)? @ -No Was there de-escalation of care discussed even if they declined (Discuss DNR or withdrawal of care, Hospice)? DNR status @ -No What co-morbidities impacted this encounter? (DM, HTN, Smoking, COPD, CAD, Cancer, CVA, ARF, Chemo, Hep., AIDS, mental health diagnosis, sleep apnea, morbid obesity)? @ -None Was patient admitted / discharged? Hospital course, mention meds given and route, prescriptions, significant lab abnormalities, going to OR and other pertinent info. @ -Admission. A 37-year-old female who presents to ED with a chief complaint of right abdominal pain. PT discharged here with CT findings significant for 5 mm stone in the right distal ureter. Discharged home with Toradol, [place], Flomax. Despite taking these medications, patient represents due to intractable pain. Here in the ED pain has been well-controlled however, patient continues to have significant pain once medications wear off. Patient will be admitted to observation for pain control consult to urology. The status plan of care with patient who is in agreement. Undiagnosed new problem with uncertain prognosis? @ -No Drug Therapy requiring intensive monitoring for toxicity (Heparin, Nitro, Insulin, Cardizem)? @ -No Were any procedures done? @ -No Diagnosis/symptom? @ -Ureteral stone Acute, or Chronic, or Acute on Chronic? @ -Acute Uncomplicated (without systemic symptoms) or Complicated (systemic symptoms)? @ -Uncomplicated Side effects of treatment? @ -No Exacerbation, Progression, or Severe Exacerbation? @ -No Poses a threat to life or bodily function? How? (Chest pain, [place], [place], pneumonia, PE, COPD, DKA, ARF, appy, cholecystitis, CVA, Diverticulitis, Homicidal, Suicidal, threat to staff... and all critical care pts) @ -No Disposition Clinical Impression: Ureteral stone Disposition: ADMITTED IP TO THIS HOSP Condition: Good Referrals: Josh Perez MD [Primary Care Provider] - 1-2 days Time of Disposition: 23:09
[2023-02-20] MEDS ORDERED: SODIUM CHLORIDE 0.9% 1,000 ML IV STA (19:26)
[2023-02-20] MEDS: HYDROmorphone 0.5 MG/0.5 ML SYRINGE IVP SCH (21:39)
[2023-02-20] MEDS ORDERED: HYDROmorphone 1 MG/ML 1 ML SYRINGE IVP PRN (23:10)
[2023-02-20] MEDS ORDERED: HYDROmorphone 0.5 MG/0.5 ML SYRINGE IVP PRN (23:10)
[2023-02-20] MEDS ORDERED: NALOXONE 0.4 MG/ML 1 ML VIAL IV PRN (23:10)
[2023-02-21] MEDS: SODIUM CHLORIDE 0.9% 1,000 ML IV SCH ×3 (00:12→15:24)
[2023-02-21] MEDS: KETOROLAC 15 MG/ML 1 ML VIAL IVP PRN ×2 (02:31→10:31)
--- NOTE | 2023-02-21 03:48 | P.HPIM ---
History of Present Illness H&P Date: 02/21/23 Chief Complaint: Right flank pain 37-year-old female no significant past medical history She came in this afternoon to the ED for evaluation right flank pain further workup showed right ureteral distal third 5 mm stone with obstructive uropathy she was discharged home with Flomax and Toradol however she came back later that evening for evaluation due to worsening pain nausea vomiting and hematuria she denies any fevers but reports some chills she describes right flank pain that radiates to the right groin colicky in nature 10 out of 10 in severity. No diarrhea no GI bleeding. Vomiting is just stomach contents no bleeding no coffee-ground vomiting nonbilious. review of systems Pertinent positives as noted in HPI. All other systems were reviewed and are negative on exam Constitutional: No acute distress, conversant, pleasant Eyes: Anicteric sclerae, moist conjunctiva, Pupils equal round reactive to light ENMT: NC/AT Oropharynx clear, no erythema, or exudates Neck: Supple, no masses, or JVD No carotid bruits No thyromegaly Lungs: Clear to auscultation Clear to percussion Normal respiratory effort, no accessory muscle use Cardiovascular: Heart regular in rate and rhythm, No murmurs, gallops, or rubs No peripheral edema Abdominal: Soft Tenderness to percussion of the right costovertebral angle, no guarding, rebound or rigidity Abdomen moving with respiration Normoactive bowel sounds No hepatomegaly, No splenomegaly No palpable mass No abdominal wall hernia noted c Extremities: No digital cyanosis No clubbing Pedal pulses intact and symmetrical Radial pulses intact and symmetrical No calf tenderness Psychiatric: Alert and oriented to person, place and time Appropriate affect fair judgement Neuro Muscles Strength 5/5 in all 4 extremities Sensation to light touch grossly present throughout Cranial nerves II-XII grossly intact Lymphatics: no palpable cervical or supraclavicular lymph nodes Past Medical History Past Medical History: Cancer Additional Past Medical History / Comment(s): Breast cancer status post bilateral mastectomy. BRCA1 gene carrier, kidney stones History of Any Multi-Drug Resistant Organisms: None Reported Past Surgical History: Hysterectomy Additional Past Surgical History / Comment(s): Bilateral mastectomy with bilateral reconstructive surgery Past Anesthesia/Blood Transfusion Reactions: No Reported Reaction Past Psychological History: No Psychological Hx Reported Smoking Status: Never smoker Past Alcohol Use History: None Reported, Occasional Past Drug Use History: None Reported - Past Family History Mother Family Medical History: No Reported History Sister(s) Family Medical History: Cancer Additional Family Medical History / Comment(s): Breast cancer. Medications and Allergies Home Medications Medication Instructions Recorded Confirmed Type HYDROcodone/APAP 5-325MG [[place] 1 tab PO Q4HR PRN #30 tab 04/06/20 Rx 5-325] Ibuprofen [Motrin] 600 mg PO Q6HR PRN #30 tab 04/06/20 Rx HYDROcodone/APAP 5-325MG [[place] 1 tab PO Q6HR PRN 3 Days #12 tab 02/20/23 Rx 5-325] Ketorolac [Toradol] 10 mg PO Q8HR #15 tab 02/20/23 Rx Ondansetron Odt [Zofran Odt] 4 mg PO Q8HR PRN #10 tab 02/20/23 Rx Tamsulosin [Flomax] 0.4 mg PO DAILY #7 cap 02/20/23 Rx Allergies Allergy/AdvReac Type Severity Reaction Status Date / Time No Known Allergies Allergy Verified 02/20/23 18:24 Physical Exam Vitals: Vital Signs Temp Pulse Resp BP Pulse Ox 02/20/23 22:30 88 20 112/68 99 02/20/23 18:22 98.6 F 94 20 128/84 98 Intake and Output 02/20/23 02/20/23 02/21/23 14:59 22:59 06:59 Other: Weight 83.915 kg Assessment and Plan Assessment: 37-year-old female with right flank pain secondary to right distal ureteral 5 mm stone I discussed the case with the adductor accepted the admission for pain control IV fluid hydration and urology evaluation with anticipated length of stay less than 2 midnights Right ureteral stone CAT scan suggested some obstructive uropathy changes with right ureteral distal third 5 mm stone IV fluid hydration with normal saline 100 mL per hour Pain control with Dilaudid 0.5 mg when necessary every 3 hours When necessary Toradol 50 mg IV push every 6 hours Flomax 0.4 mg by mouth daily Zofran 4 mg IV push every 8 hours when necessary Urine analysis showed large amount of blood Renal function unremarkable Blood work showed hemoglobin 13, white count 11 Renal function showed BUN 17 creatinine 0.86, sodium 134 potassium 3.9 Lactic acid 2.3 Full code DVT prophylaxis mechanical
[2023-02-21] MEDS: HYDROmorphone 0.5 MG/0.5 ML SYRINGE IVP SCH ×8 (04:20→21:53)
[2023-02-21] MEDS: TAMSULOSIN 0.4 MG CAP.ER.24H PO SCH (08:48)
--- NOTE | 2023-02-21 09:09 | P.GSCN ---
History of Present Illness Consult date: 02/21/23 Reason for Consult: Right ureteral calculus Requesting physician: Bernie Valdes History of present illness: The patient is a 37-year-old white female with no prior history of urolithiasis. On the evening of 02/19/2023 she experienced right flank pain which has since shifted to the right lower quadrant. This was associated with intractable nausea and vomiting. She was evaluated in the ER and found to have evidence of right hydronephrosis due to a 5 mm right distal ureteral calculus. She denies dysuria but has experienced urgency. Review of Systems - Constitutional Denies chills, Denies fever - Respiratory Denies dyspnea - Gastrointestinal Reports nausea, Reports vomiting - Genitourinary Genitourinary: Reports flank pain, Reports hematuria, Reports kidney stones, Reports urgency, Denies dysuria Past Medical History Past Medical History: Cancer Additional Past Medical History / Comment(s): Breast cancer status post bilateral mastectomy. BRCA1 gene carrier, kidney stones History of Any Multi-Drug Resistant Organisms: None Reported Past Surgical History: Hysterectomy Additional Past Surgical History / Comment(s): Bilateral mastectomy with bilateral reconstructive surgery Past Anesthesia/Blood Transfusion Reactions: No Reported Reaction Past Psychological History: No Psychological Hx Reported Smoking Status: Never smoker Past Alcohol Use History: None Reported, Occasional Past Drug Use History: None Reported - Past Family History Mother Family Medical History: No Reported History Sister(s) Family Medical History: Cancer Additional Family Medical History / Comment(s): Breast cancer. Medications and Allergies Home Medications Medication Instructions Recorded Confirmed Type HYDROcodone/APAP 5-325MG [[place] 1 tab PO Q4HR PRN #30 tab 04/06/20 Rx 5-325] Ibuprofen [Motrin] 600 mg PO Q6HR PRN #30 tab 04/06/20 Rx HYDROcodone/APAP 5-325MG [[place] 1 tab PO Q6HR PRN 3 Days #12 tab 02/20/23 Rx 5-325] Ketorolac [Toradol] 10 mg PO Q8HR #15 tab 02/20/23 Rx Ondansetron Odt [Zofran Odt] 4 mg PO Q8HR PRN #10 tab 02/20/23 Rx Tamsulosin [Flomax] 0.4 mg PO DAILY #7 cap 02/20/23 Rx Allergies Allergy/AdvReac Type Severity Reaction Status Date / Time No Known Allergies Allergy Verified 02/20/23 18:24 Surgical - Exam Vital Signs Temp Pulse Resp BP Pulse Ox 98.6 F 94 20 128/84 98 02/20/23 18:22 02/20/23 18:22 02/20/23 18:22 02/20/23 18:22 02/20/23 18:22 - General well developed, well nourished, no distress - Neck no masses, trachea midline - Respiratory normal respiratory effort - Abdomen Soft, non-distended, no mass. Mild right lower quadrant tenderness, no guarding or rebound. - Psychiatric oriented to time, oriented to person, oriented to place, speech is normal, memory intact Results - Imaging CT scan - abdomen: report reviewed, image reviewed Assessment and Plan (1) Ureteral stone Current Visit: Yes Status: Acute Code(s): N20.1 - CALCULUS OF URETER SNOMED Code(s): 66798463 (2) Hydronephrosis with renal and ureteral calculous obstruction Current Visit: Yes Status: Acute Code(s): N13.2 - HYDRONEPHROSIS WITH RENAL AND URETERAL CALCULOUS OBSTRUCTION SNOMED Code(s): 999631729 Plan: I had a lengthy discussion with the patient regarding her right distal ureteral calculus. I explained to her that the calculus has an 80+% chance of passing. She was evaluated in the ER yesterday, discharged home, and returned with intractable symptoms. Therefore, she desires ureteroscopic removal of the calculus rather than medical expulsion therapy. I have reviewed the procedure with her in detail, explaining that risks include anesthesia, inability to remove the calculus, and ureteral injury. She is aware of the possible need for a ureteral stent postoperatively. Time with Patient: Greater than 30
--- NOTE | 2023-02-21 14:29 | P.PN ---
Subjective Progress Note Date: 02/21/23 Hospital Course: 37-year-old female with no significant past medical history presenting for right flank pain. Workup showed a right ureteral distal third 5 mm stone with obstructive uropathy. She was eventually discharged home Flomax and Toradol, and presented back to the ED with worsening pain, nausea, vomiting and hematuria. Urology consulted. Subjective: She is seen and examined at bedside. Continues to have right flank pain. Pertinent positives and negatives as discussed above, a complete review of systems was performed and all other systems are negative. Vitals Signs Reviewed. General: nontoxic, no distress, appears at stated age Derm: warm, dry Head: atraumatic, normocephalic, symmetric Eyes: EOMI, no lid lag, anicteric sclera Mouth: no lip lesion, mucus membranes moist Cardiovascular: S1S2 reg, no murmur Lungs: CTA bilateral, no rhonchi, no rales , no accessory muscle use Abdominal: soft, nontender to palpation, no guarding, no appreciable organomegaly Ext: no gross muscle atrophy, no edema, no contractures Neuro: CN II-XI grossly intact, no focal neuro deficits Psych: Alert, oriented, appropriate affect Data Reviewed Today: Pertinent Labs: No new labs Imaging: No new imaging Assessment and Plan: Right ureteral stone Obstructive uropathy Leukocytosis Lactic acidosis, resolved -Urology consulted, not reviewed, pending surgical intervention tomorrow -Continue IV Dilaudid, IV Toradol, Flomax, and fluids DVT ppx: SCDs Code status: Full code Anticipated discharge place: Pending clinical course Anticipated discharge time: Pending clinical course No charge associated with this. Objective - Vital Signs Vital signs: Vital Signs Temp 97.6 F 02/21/23 14:10 Pulse 76 02/21/23 14:10 Resp 17 02/21/23 14:10 BP 107/66 02/21/23 14:10 Pulse Ox 98 02/21/23 14:10 FiO2 Intake & Output 02/20/23 02/21/23 02/21/23 18:59 06:59 18:59 Intake Total 600 Balance 600 Weight 83.915 kg Intake: Oral 600 Other: Voiding Method Toilet
--- NOTE | 2023-02-21 16:18 | XR ---
EXAMINATION TYPE: XR KUB DATE OF EXAM: 02/21/2023 COMPARISON: None INDICATION: Right ureteral calculus TECHNIQUE: Single view abdomen upright view FINDINGS: There is a normal bowel gas pattern. Psoas margins are normal. No organomegaly is present. Nonspecific calcification may be in the right hemipelvis measuring 0.5 cm. IMPRESSION: 1. There may be a distal right ureteral stone. Correlate with the symptoms. Suspicious calcifications are not otherwise apparent.
[2023-02-21] MEDS: ONDANSETRON 4 MG/2 ML VIAL IVP PRN (17:31)
[2023-02-21 20:40] VITALS: RESP 16
[2023-02-22] MEDS: HYDROmorphone 0.5 MG/0.5 ML SYRINGE IVP SCH ×7 (01:14→16:33)
[2023-02-22] MEDS: SODIUM CHLORIDE 0.9% 1,000 ML IV SCH ×2 (07:38→14:32)
[2023-02-22] MEDS ORDERED: IV FLUID CONTINUATION 1,000 ML IV ONE (08:00)
[2023-02-22] MEDS ORDERED: PROPOFOL 10 MG/ML 20 ML VIAL IV ONE (08:00)
[2023-02-22] MEDS ORDERED: LIDOCAINE 2% INJ 20 MG/ML (2 ML VIAL) ONE (08:00)
[2023-02-22] MEDS ORDERED: MIDAZOLAM 2 MG/2 ML VIAL ONE (08:00)
[2023-02-22] MEDS ORDERED: fentaNYL (PF) 50 MCG/ML 2 ML AMP ONE (08:00)
[2023-02-22] MEDS ORDERED: IOPAMIDOL-370 100ML BTL MISCELLANE ONE (08:14)
[2023-02-22] MEDS ORDERED: KETOROLAC 15 MG/ML 1 ML VIAL IVP ONE (08:52)
--- NOTE | 2023-02-22 09:21 | P.OP ---
Date of Procedure: 02/22/23 Preoperative Diagnosis: Right ureteral calculus Postoperative Diagnosis: Same Procedure(s) Performed: Cystoscopy, right ureteroscopy with Holmium laser lithotripsy Anesthesia: VIBHA Surgeon: James Diaz Estimated Blood Loss (ml): 0 IV fluids (ml): 400 Pathology: other (Right ureteral calculus fragments, sent for chemical analysis) Condition: stable Disposition: PACU Indications for Procedure: The patient is a 37-year-old white female with no prior history of urolithiasis. On the evening of 02/19/2023 she experienced right flank pain which has since shifted to the right lower quadrant. This was associated with intractable nausea and vomiting. She was evaluated in the ER and found to have evidence of right hydronephrosis due to a 5 mm right distal ureteral calculus. She has elected to undergo ureteroscopic removal of the calculus. Operative Findings: Right distal ureteral calculus, fragmented and removed completely. Description of Procedure: The patient was taken to the operating room and placed in the dorsolithotomy position, with legs supported in Rich stirrups. The external genitalia was prepped and draped sterilely. The 30 lens was used to introduce the 21-Welsh Del Cid cystoscopic sheath through the urethra and into the bladder under direct vision. The bladder was examined in its entirety. Both ureteral orifices were normal anatomic location and configuration, and clear urine effluxed from both. No tumors or foreign bodies were seen. A 10-Welsh cone-tipped catheter was advanced through the right ureteral orifice to dilate the orifice. The cystoscope was then removed. The Del Cid semirigid ureteroscope was advanced into the bladder, and the right ureteral orifice was cannulated. The ureteroscope was advanced approximately 1 cm, and the calculus was seen. The 365 micron Holmium laser probe was passed through the ureteroscope, and lithotripsy was performed. After fragmenting the calculus, all calculus fragments passed distally into the bladder. Inspection of the ureter at this time showed no residual calculus fragments, and no evidence of ureteral trauma. There was no significant edema seen, and therefore the decision was made not to place a ureteral stent. After removing the ureteroscope, the cystoscope was replaced into the bladder to remove the calculus fragments, which were sent for chemical analysis. The patient tolerated the procedure well and was taken to the recovery room in stable condition. [employer] [facility] [place] Report: Procedure Acuity: Urgent Stone Size and Location: 5 mm, right distal ureter Ureteral Dilation: No Ureteral Access Sheath Used: No Stone Sent for Analysis: Yes All Stones/Fragments Were Removed: Yes Complications: No Preoperative Antibiotics Given: Yes Stent Placed: No
[2023-02-22] MEDS: TAMSULOSIN 0.4 MG CAP.ER.24H PO SCH (09:27)
--- NOTE | 2023-02-22 11:01 | FL ---
Fluoroscopy INDICATION: Pain FINDINGS: Fluoroscopy time: 2 seconds. Total dose area product (DAP) in uGy*m?, mGy*cm? (or similar): 0.2661 Images obtained: 0. IMPRESSION: 1. Documentation of fluoroscopy.
[2023-02-22 13:21] LABS: Basophils % (A) 0 %; Eosinophils # (A) 0.1 k/uL (0-0.7); Eosinophils % (A) 2 %; HCT 33.4 % (34.0-46.0); Lymphocytes # (A) 1.5 k/uL (1.0-4.8); Lymphocytes % (A) 27 %; MCH 29.1 pg (25.0-35.0); MCV 88.3 fL (80.0-100.0); Mean Platelet Volume 7.3; Monocytes # (A) 0.3 k/uL (0-1.0); Monocytes % (A) 5 %; Neutrophils # (A) 3.6 k/uL (1.3-7.7); Neutrophils % (A) 65 %; Platelet Count 198 k/uL (150-450); RBC 3.79 m/uL (3.80-5.40); RDW 13.2 % (11.5-15.5); WBC 5.6 k/uL (3.8-10.6)
[2023-02-22 13:33] LABS: African American GFR (CKD) 88 (>60 ml/min/1.73 sqM); Anion Gap 4 mmol/L; Blood Urea Nitrogen 10 mg/dL (7-17); Calcium 8.3 mg/dL (8.4-10.2); Carbon Dioxide 25 mmol/L (22-30); Chloride 108 mmol/L (98-107); Glucose 100 mg/dL (74-99); Non-African American GFR(CKD) 76 (>60 ml/min/1.73 sqM); Potassium 3.8 mmol/L (3.5-5.1); Sodium 137 mmol/L (137-145)
[2023-02-22] MEDS: ONDANSETRON 4 MG/2 ML VIAL IVP PRN (14:13)
[2023-02-22 15:18] VITALS: BP 105/76; PULSE 77; TEMP 98.4
--- NOTE | 2023-02-22 15:37 | P.PN ---
Subjective Progress Note Date: 02/22/23 Hospital Course: 37-year-old female with no significant past medical history presenting for right flank pain. Workup showed a right ureteral distal third 5 mm stone with obstructive uropathy. She was eventually discharged home Flomax and Toradol, and presented back to the ED with worsening pain, nausea, vomiting and hematuria. Urology consulted. Patient underwent cystoscopy, right ureteroscopy with lithotripsy. Subjective: She is seen and examined at bedside. No acute events overnight. Having some nausea after procedure. Pertinent positives and negatives as discussed above, a complete review of systems was performed and all other systems are negative. Vitals Signs Reviewed. General: nontoxic, no distress, appears at stated age Derm: warm, dry Head: atraumatic, normocephalic, symmetric Eyes: EOMI, no lid lag, anicteric sclera Mouth: no lip lesion, mucus membranes moist Cardiovascular: S1S2 reg, no murmur Lungs: CTA bilateral, no rhonchi, no rales , no accessory muscle use Abdominal: soft, nontender to palpation, no guarding, no appreciable organomegaly Ext: no gross muscle atrophy, no edema, no contractures Neuro: CN II-XI grossly intact, no focal neuro deficits Psych: Alert, oriented, appropriate affect Data Reviewed Today: Pertinent Labs: WBC 5.6, hemoglobin 11, potassium 3.8, creatinine 0.95 Imaging: No new imaging Assessment and Plan: Right ureteral stone Obstructive uropathy Leukocytosis, resolved Lactic acidosis, resolved Mild normocytic anemia Nausea -Operative note reviewed, patient tolerated procedure well -Continue IV Dilaudid, IV Toradol, Flomax, and fluids -IV Zofran as needed DVT ppx: SCDs Code status: Full code Anticipated discharge place: Home Anticipated discharge time: Tomorrow Objective - Vital Signs Vital signs: Vital Signs Temp 98.1 F 02/22/23 09:35 Pulse 66 02/22/23 10:35 Resp 16 02/22/23 09:07 BP 101/64 02/22/23 10:35 Pulse Ox 97 02/22/23 10:35 FiO2 Intake & Output 02/21/23 02/22/23 02/22/23 18:59 06:59 18:59 Intake Total 600 800 Balance 600 800 Weight 83.915 kg Intake: IV 800 Oral 600 Other: Voiding Method Toilet Toilet # Voids 1 3 1 - Labs CBC & Chem 7: 02/22/23 12:34 02/22/23 12:34 Labs: Abnormal Lab Results - Last 24 Hours (Table) 02/22/23 02/22/23 Range/Units 12:34 12:34 RBC 3.79 L (3.80-5.40) m/uL Hgb 11.0 L (11.4-16.0) gm/dL Hct 33.4 L (34.0-46.0) % Chloride 108 H (98-107) mmol/L Glucose 100 H (74-99) mg/dL Calcium 8.3 L (8.4-10.2) mg/dL
--- NOTE | 2023-02-22 17:38 | P.DS ---
Providers Date of admission: 02/20/23 22:44 Expected date of discharge: 02/22/23 Attending physician: Bernie Valdes MD Consults: 02/20/23 23:10 Consult Physician Urgent Consulting Provider: James Diaz Consult Reason/Comments: 5mm ureteral stone Do you want consulting provider notified?: Yes Primary care physician: Josh Perez Hospital Course: Discharge Diagnosis: Right ureteral stone Obstructive uropathy Leukocytosis, resolved Lactic acidosis, resolved Mild normocytic anemia Nausea Hospital Course: 37-year-old female with no significant past medical history presenting for right flank pain. Workup showed a right ureteral distal third 5 mm stone with obstructive uropathy. She was eventually discharged home Flomax and Toradol, and presented back to the ED with worsening pain, nausea, vomiting and hematuria. Urology consulted. Patient underwent cystoscopy, right ureteroscopy with lithotripsy. Doing well at the time of discharge. Patient seen and examined at bedside. Vital signs reviewed and stable. General: nontoxic, no distress, appears at stated age Derm: warm, dry Head: atraumatic, normocephalic, symmetric Eyes: EOMI, no lid lag, anicteric sclera Mouth: no lip lesion, mucus membranes moist Cardiovascular: S1S2 reg, no murmur Lungs: CTA bilateral, no rhonchi, no rales , no accessory muscle use Abdominal: soft, nontender to palpation, no guarding, no appreciable organomegaly Ext: no gross muscle atrophy, no edema, no contractures Neuro: CN II-XI grossly intact, no focal neuro deficits Psych: Alert, oriented, appropriate affect A total of 33 minutes of time were spent preparing this complex discharge summary. Patient was discharged on 02/22/23 at 1737. Patient Condition at Discharge: Stable Plan - Discharge Summary Discharge Rx Participant: No New Discharge Prescriptions: Continue Escitalopram [Lexapro] 20 mg PO DAILY Vitamin K2(Unknown Dose) 1 tab PO DAILY Vitamin D3(Unknown Dose) 1 tab PO DAILY Vitamin B-12(Unknown Dose) 1 tab PO DAILY Magnesium Citrate 400mg 400 mg PO HS Discontinued Ketorolac [Toradol] 10 mg PO Q8HR #15 tab Tamsulosin [Flomax] 0.4 mg PO DAILY #7 cap HYDROcodone/APAP 5-325MG [[place] 5-325] 1 tab PO Q6HR PRN 3 Days #12 tab PRN Reason: Pain Ondansetron Odt [Zofran Odt] 4 mg PO Q8HR PRN #10 tab PRN Reason: Nausea Discharge Medication List Escitalopram [Lexapro] 20 mg PO DAILY 02/21/23 [History] Magnesium Citrate 400mg 400 mg PO HS 02/21/23 [History] Vitamin B-12(Unknown Dose) 1 tab PO DAILY 02/21/23 [History] Vitamin D3(Unknown Dose) 1 tab PO DAILY 02/21/23 [History] Vitamin K2(Unknown Dose) 1 tab PO DAILY 02/21/23 [History] Follow up Appointment(s)/Referral(s): James Diaz MD [STAFF PHYSICIAN] - 2 Weeks Josh Perez MD [Primary Care Provider] - 1-2 days Patient Instructions/Handouts: Kidney Stones (DC) Activity/Diet/Wound Care/Special Instructions: Please see PCP and urology. Discharge Disposition: HOME SELF-CARE
== END 2023-02-22 16:12 | disposition home or self-care (01) ==
LOC: EC 18:01 → 6NMEDSUR 22:44 → 4SSUR 02-21 10:55
PROVIDERS: ADMIT Internal Medicine; ATTEND Internal Medicine
DX: N13.2 Hydronephrosis with renal and ureteral calculous obstruction (principal); D72.829 Elevated white blood cell count, unspecified; E87.20 Acidosis, unspecified; R11.0 Nausea; D64.9 Anemia, unspecified; Z87.442 Personal history of urinary calculi; Z85.3 Personal history of malignant neoplasm of breast; Z90.13 Acquired absence of bilateral breasts and nipples; Z79.899 Other long term (current) drug therapy
CPT/HCPCS: 96376 ×4; 96361 ×3; 96374; 96375; 99285; 80048; 85025; 82365; 74018; 52353; G0378 ×4; C1758; C1769; J2250; J2405 ×2; J3010; J1170 ×4; J1885 ×2; J2704; J2001

== ENCOUNTER → 2023-04-07 | Outpatient (CLI) | payer BC ==
--- NOTE | 2023-04-08 22:38 | US ---
EXAMINATION TYPE: US kidneys/renal and bladder DATE OF EXAM: 04/07/2023 COMPARISON: NONE CLINICAL INDICATION: Female, 37 years old with history of N13.2 HYDRONEPHROSIS WITH RENAL AND URETERA L CALCU; h/o renal ureter with surgical removal recently EXAM MEASUREMENTS: Right Kidney: 9.4 x 4.3 x 4.6 cm Left Kidney: 10.2 x 4.9 x 4.9 cm Right Kidney: No hydronephrosis or masses seen Left Kidney: No hydronephrosis or masses seen Bladder: wnl Bilateral Jets seen: Yes IMPRESSION: 1. Normal renal ultrasound
== END | disposition home or self-care (01) ==
LOC: RADUSWWP 15:31
PROVIDERS: ATTEND Urology
DX: N13.2 Hydronephrosis with renal and ureteral calculous obstruction (principal)
CPT/HCPCS: 76770

== ENCOUNTER 2023-12-15 11:00 | Emergency (ER) | payer BC ==
[2023-12-15] MEDS: SODIUM CHLORIDE 0.9% 2,000 ML IV STA (12:18)
[2023-12-15] MEDS: PROCHLORPERAZINE INJ 10 MG/2 ML VIAL IVP STA (12:20)
[2023-12-15 13:00] LABS: Appearance,Urine Clear (Clear); Bilirubin,Urine Negative (Negative); Blood,Urine Negative (Negative); Color,Urine Colorless; Glucose,Urine (UA) Negative (Negative); Ketones,Urine Negative (Negative); Leukocyte Esterase,Urine Moderate (Negative); Mucus,Urine Moderate /hpf; Nitrite,Urine Negative (Negative); Protein,Urine Negative (Negative); RBC,Urine 1 /hpf (0-5); Specific Gravity,Urine 1.015 (1.001-1.035); Squamous Epithelial Cell,Urine 1 /hpf (0-4); Urobilinogen,Urine <2.0 mg/dL (<2.0); WBC,Urine 1 /hpf (0-5)
[2023-12-15 13:09] LABS: Basophils % (A) 0 %; Eosinophils # (A) 0.2 k/uL (0-0.7); Eosinophils % (A) 2 %; HCT 44.1 % (34.0-46.0); HGB 14.6 gm/dL (11.4-16.0); Lymphocytes # (A) 1.6 k/uL (1.0-4.8); Lymphocytes % (A) 20 %; MCH 28.5 pg (25.0-35.0); MCHC 33.1 g/dL (31.0-37.0); Mean Platelet Volume 7.4; Monocytes # (A) 0.4 k/uL (0-1.0); Monocytes % (A) 5 %; Neutrophils # (A) 5.6 k/uL (1.3-7.7); Neutrophils % (A) 72 %; Platelet Count 292 k/uL (150-450); RBC 5.13 m/uL (3.80-5.40); RDW 13.7 % (11.5-15.5); WBC 7.8 k/uL (3.8-10.6)
[2023-12-15 13:39] LABS: ALT 24 U/L (4-34); African American GFR (CKD) >90 (>60 ml/min/1.73 sqM); Albumin 5.2 g/dL (3.5-5.0); Alkaline Phosphatase 104 U/L (38-126); Amylase 53 U/L (30-110); Anion Gap 12 mmol/L; Blood Urea Nitrogen 14 mg/dL (7-17); Carbon Dioxide 21 mmol/L (22-30); Chloride 106 mmol/L (98-107); Glucose 87 mg/dL (74-99); Lipase 81 U/L (23-300); Magnesium 1.9 mg/dL (1.6-2.3); Non-African American GFR(CKD) 78 (>60 ml/min/1.73 sqM); Potassium 4.5 mmol/L (3.5-5.1); Sodium 139 mmol/L (137-145); Total Bilirubin 0.4 mg/dL (0.2-1.3); Total Protein 8.4 g/dL (6.3-8.2)
[2023-12-15 14:27] VITALS: BP 105/61; RESP 16
--- NOTE | 2023-12-15 14:40 | ED ---
General Adult HPI - General Chief complaint: Recheck/Abnormal Lab/Rx Stated complaint: dehydrated Time Seen by Provider: 12/15/23 11:26 Source: patient, RN notes reviewed Limitations: no limitations - History of Present Illness Initial comments: 38-year-old female presents emergency department chief complaint of nausea vomiting diarrhea. Patient states she was started on monjurno Patient states she initially had satiety when she started develop increasing nausea states that she tried to keep up her fluid intake but she is having severe diarrhea, cramping. Patient states that she feels extremely dehydrated she is lost greater than 10 pounds in a few days. - Related Data Home Medications Medication Instructions Recorded Confirmed Sertraline [Zoloft] 25 mg PO DAILY 12/15/23 12/15/23 Allergies Allergy/AdvReac Type Severity Reaction Status Date / Time tirzepatide [From Alejandra] AdvReac Nausea & Verified 12/15/23 13:01 Vomiting & Diarrhea Review of Systems ROS Statement: Those systems with pertinent positive or pertinent negative responses have been documented in the HPI. ROS Other: All systems not noted in ROS Statement are negative. Past Medical History Past Medical History: Cancer Additional Past Medical History / Comment(s): Breast cancer status post bilateral mastectomy. BRCA1 gene carrier, kidney stones History of Any Multi-Drug Resistant Organisms: None Reported Past Surgical History: Appendectomy, Hysterectomy Additional Past Surgical History / Comment(s): Bilateral mastectomy with bilateral reconstructive surgery Past Anesthesia/Blood Transfusion Reactions: No Reported Reaction Past Psychological History: Anxiety Smoking Status: Never smoker Past Alcohol Use History: None Reported, Occasional Past Drug Use History: None Reported - Past Family History Mother Family Medical History: No Reported History Sister(s) Family Medical History: Cancer Additional Family Medical History / Comment(s): Breast cancer. General Exam Limitations: no limitations General appearance: alert, in no apparent distress Head exam: Present: atraumatic, normocephalic, normal inspection Eye exam: Present: normal appearance, PERRL, EOMI. Absent: scleral icterus, conjunctival injection, periorbital swelling ENT exam: Present: mucous membranes dry Neck exam: Present: normal inspection, full ROM. Absent: tenderness, meningismus, lymphadenopathy Respiratory exam: Present: normal lung sounds bilaterally. Absent: respiratory distress, wheezes, rales, rhonchi, stridor Cardiovascular Exam: Present: normal rhythm, tachycardia, normal heart sounds. Absent: systolic murmur, diastolic murmur, rubs, gallop, clicks GI/Abdominal exam: Present: soft, normal bowel sounds. Absent: distended, tenderness, guarding, rebound, rigid Course Vital Signs 12/15/23 12/15/23 12/15/23 11:22 11:48 13:10 Temperature 98.2 F 98.3 F Pulse Rate 105 H 92 91 Respiratory 18 16 17 Rate Blood Pressure 114/78 103/64 O2 Sat by Pulse 97 99 99 Oximetry 12/15/23 14:25 Temperature Pulse Rate 93 Respiratory 16 Rate Blood Pressure 105/61 O2 Sat by Pulse 100 Oximetry Medical Decision Making - Medical Decision Making Was pt. sent in by a medical professional or institution (, PA, TONGUE PRESSER, urgent care, hospital, or penitentiary...) When possible be specific @ -No Did you speak to anyone other than the patient for history (EMS, parent, family, police, friend...)? What history was obtained from this source @ -No Did you review nursing and triage notes (agree or disagree)? Why? @ -I reviewed and agree with nursing and triage notes Were old charts reviewed (outside hosp., previous admission, EMS record, old EKG, old radiological studies, urgent care reports/EKG's, penitentiary records)? Report findings @ -No old charts were reviewed Differential Diagnosis (chest pain, altered mental status, abdominal pain women, abdominal pain men, vaginal bleeding, weakness, fever, dyspnea, syncope, headache, dizziness, GI bleed, back pain, seizure, CVA, palpatations, mental health, musculoskeletal)? @ -Differential Abdominal Pain Women: Appendicitis, Cholecystitis, diverticulosis, ischemic bowel, pancreatitis, hepatitis, UTI, gastroenteritis, AAA, incarcerated hernia, bowel obstruction, constipation, inflammatory bowel, hepatitis, peptic ulcer disease, splenic infarction, perforated viscus, vulvitis, ovarian torsion, PID, kidney stone, placenta abruption, this is not meant to be an all-inclusive list EKG interpreted by me (3pts min.). @ -None X-rays interpreted by me (1pt min.). @ -None done CT interpreted by me (1pt min.). @ -None done U/S interpreted by me (1pt. min.). @ -None done What testing was considered but not performed or refused? (CT, X-rays, U/S, labs)? Why? @ -None What meds were considered but not given or refused? Why? @ -None Did you discuss the management of the patient with other professionals (professionals i.e. , PA, TONGUE PRESSER, lab, RT, psych nurse, bilingual social worker, program or project administrator, teacher, event security officer, director of casework)? Give summary @ -No Was smoking cessation discussed for >3mins.? @ -No Was critical care preformed (if so, how long)? @ -No Were there social determinants of health that impacted care today? How? (Homelessness, low income, unemployed, alcoholism, drug addiction, transportation, low edu. Level, literacy, decrease access to med. care, residential, rehab)? @ -No Was there de-escalation of care discussed even if they declined (Discuss DNR or withdrawal of care, Hospice)? DNR status @ -No What co-morbidities impacted this encounter? (DM, HTN, Smoking, COPD, CAD, Cancer, CVA, ARF, Chemo, Hep., AIDS, mental health diagnosis, sleep apnea, morbid obesity)? @ -None Was patient admitted / discharged? Hospital course, mention meds given and route, prescriptions, significant lab abnormalities, going to OR and other pertinent info. @ -Discharge patient presented for nausea vomiting diarrhea after starting new medication. Patient is acutely dehydrated she was given 2 L of fluids, antiemetics has been improved. Patient discharged in stable condition with antiemetics return parameters discussed Undiagnosed new problem with uncertain prognosis? @ -No Drug Therapy requiring intensive monitoring for toxicity (Heparin, Nitro, Insulin, Cardizem)? @ -No Were any procedures done? @ -No Diagnosis/symptom? @ -Medication adverse reaction, dehydration, nausea vomiting diarrhea Acute, or Chronic, or Acute on Chronic? @ -Acute Uncomplicated (without systemic symptoms) or Complicated (systemic symptoms)? @ -Uncomplicated Side effects of treatment? @ -No Exacerbation, Progression, or Severe Exacerbation? @ -No Poses a threat to life or bodily function? How? (Chest pain, USA, MS, pneumonia, PE, COPD, DKA, ARF, appy, cholecystitis, CVA, Diverticulitis, Homicidal, Suicidal, threat to staff... and all critical care pts) @ -No - Lab Data Result diagrams: 12/15/23 11:56 12/15/23 11:56 Lab Results 12/15/23 12/15/23 12/15/23 Range/Units 11:56 11:56 11:56 WBC 7.8 (3.8-10.6) k/uL RBC 5.13 (3.80-5.40) m/uL Hgb 14.6 (11.4-16.0) gm/dL Hct 44.1 (34.0-46.0) % MCV 86.0 (80.0-100.0) fL MCH 28.5 (25.0-35.0) pg MCHC 33.1 (31.0-37.0) g/dL RDW 13.7 (11.5-15.5) % Plt Count 292 (150-450) k/uL MPV 7.4 Neutrophils % 72 % Lymphocytes % 20 % Monocytes % 5 % Eosinophils % 2 % Basophils % 0 % Neutrophils # 5.6 (1.3-7.7) k/uL Lymphocytes # 1.6 (1.0-4.8) k/uL Monocytes # 0.4 (0-1.0) k/uL Eosinophils # 0.2 (0-0.7) k/uL Basophils # 0.0 (0-0.2) k/uL Sodium 139 (137-145) mmol/L Potassium 4.5 (3.5-5.1) mmol/L Chloride 106 (98-107) mmol/L Carbon Dioxide 21 L (22-30) mmol/L Anion Gap 12 mmol/L BUN 14 (7-17) mg/dL Creatinine 0.92 (0.52-1.04) mg/dL Est GFR (CKD-EPI)AfAm >90 (>60 ml/min/1.73 sqM) Est GFR (CKD-EPI)NonAf 78 (>60 ml/min/1.73 sqM) Glucose 87 (74-99) mg/dL Calcium 10.0 (8.4-10.2) mg/dL Magnesium 1.9 (1.6-2.3) mg/dL Total Bilirubin 0.4 (0.2-1.3) mg/dL ALT 24 (4-34) U/L Alkaline Phosphatase 104 (38-126) U/L Total Protein 8.4 H (6.3-8.2) g/dL Albumin 5.2 H (3.5-5.0) g/dL Amylase 53 (30-110) U/L Lipase 81 (23-300) U/L Urine Color Colorless Urine Appearance Clear (Clear) Urine pH 5.0 (5.0-8.0) Ur Specific [place] 1.015 (1.001-1.035) Urine Protein Negative (Negative) Urine Glucose (UA) Negative (Negative) Urine Ketones Negative (Negative) Urine Blood Negative (Negative) Urine Nitrite Negative (Negative) Urine Bilirubin Negative (Negative) Urine Urobilinogen <2.0 (<2.0) mg/dL Ur Leukocyte Esterase Moderate H (Negative) Urine RBC 1 (0-5) /hpf Urine WBC 1 (0-5) /hpf Ur Squamous Epith Cells 1 (0-4) /hpf Urine Mucus Moderate H (None) /hpf Disposition Clinical Impression: Adverse drug reaction, Dehydration, Nausea vomiting and diarrhea Disposition: HOME SELF-CARE Condition: Stable Instructions (If sedation given, give patient instructions): Dehydration (ED) Additional Instructions: Please return to the Emergency Department if symptoms worsen or any other concerns. Is patient prescribed a controlled substance at d/c from ED?: No Referrals: Josh Perez MD [Primary Care Provider] - 1-2 days Time of Disposition: 14:40
[2023-12-15] MEDS: METOCLOPRAMIDE 5 MG/ML 2 ML VIAL IVP STA (14:41)
[2023-12-15 14:45] VITALS: PULSE 98
[2023-12-15 14:59] VITALS: TEMP 97.2
[2023-12-15 15:48] LABS: AST 24 U/L (14-36)
== END 2023-12-15 14:57 | disposition home or self-care (01) ==
LOC: EC 11:00
DX: E86.0 Dehydration (principal); T50.905A Adverse effect of unspecified drugs, medicaments and biological substances, initial encounter; Z88.8 Allergy status to other drugs, medicaments and biological substances
CPT/HCPCS: 36415; 80053; 82150; 83690; 83735; 85025; 81001; 99283; 96374; 96375; 96361 ×2; J0780; J2765